=== PATIENT | female | born 1960 | race Hispanic/Latino ===

== ENCOUNTER 2018-06-15 15:02 | Inpatient (IN) | payer MEDICARE, OTHER ==
[2018-06-15 23:37] VITALS: BMI 37.5
[2018-06-15] MEDS ORDERED: Bismuth Subsalicylate 262 mg/15 ml Sus (240 ml) PO PRN (23:46)
[2018-06-15] MEDS ORDERED: Magnesium Hydroxide Susp 30 ml UD PO PRN (23:46)
[2018-06-15] MEDS ORDERED: Alum-Mag Hydrox-Simethicone Susp (30 mL) PO PRN (23:46)
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
[2018-06-16 06:56] LABS: BASO # 0.1 K/uL (0.0-0.2); BASO % 0.8 % (0.0-2.0); EOS # 0.1 K/uL (0.0-0.7); EOS % 1.9 % (0.0-4.0); HEMOGLOBIN 12.5 g/dL (12.0-16.0); LYMPH # 1.8 K/uL (1.0-4.3); LYMPH % 26.7 % (20.0-40.0); MEAN CELL VOLUME 88.5 fl (81.0-99.0); MEAN CORPUSCULAR HEMOGLOBIN 29.6 pg (27.0-31.0); MEAN CORPUSCULAR HGB CONC 33.4 g/dL (33.0-37.0); MEAN PLATELET VOLUME 7.1 fl (7.2-11.7); MONO # 0.5 K/uL (0.0-0.8); MONO % 7.1 % (0.0-10.0); NEUT # 4.3 K/uL (1.8-7.0); NEUT % 63.5 % (50.0-75.0); NRBC % 0.1 % (0.0-0.0); RBC 4.22 Mil/uL (3.80-5.20); WHITE BLOOD COUNT 6.8 K/uL (4.8-10.8)
[2018-06-16 07:07] LABS: ALB/GLOB RATIO 1.4 (1.0-2.1); ALBUMIN 4.1 g/dL (3.5-5.0); CALCIUM 9.2 mg/dL (8.4-10.2)
[2018-06-16 07:25] LABS: T4 10.7 ug/dl (5.5-11.0)
[2018-06-16 07:26] LABS: IRON 63 ug/dL (37-170)
[2018-06-16 07:43] LABS: % IRON SATURATION 17 % (20-55); TOTAL IRON BINDING CAPACITY 361 ug/dL (250-450)
[2018-06-16] MEDS: OLANZapine 5 mg Disintegrating Tab PO SCH (09:44)
[2018-06-16] MEDS: Cholestyramine 4 gm/Pkt UD PO SCH (09:48)
--- NOTE | 2018-06-16 11:21 | PCM.PSYCH ---
Initial Psychiatric Evaluation - Initial Psychiatric Evaluation Type of Admission: Voluntary Legal Status: Capacity Chief Complaint (in patient's own words): "I'm hearing voices telling me to kill myself." Patient's Reaction to Hospitalization: HPI: 58 yo female w/ h/o schizophrenia vs schizoaffective disorder, transferred from [facility], presents w/ worsening depression, CAH telling her to overdose on pills, active suicidal ideation w/o current intent, paranoia and persecutory delusions. Patient was recently restarted on Zyprexa and Remeron. PPHx: Multiple past psychiatric admissions, current outpatient tx w/ Dr. 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 Current Medications: Active Medications Generic Name Dose Route Start Last Admin Trade Name Freq PRN Reason Stop Dose Admin Acetaminophen 650 mg 06/15/18 23:46 06/16/18 00:05 Tylenol 325mg Tab PO 650 mg Q4 PRN Administration Pain, moderate (4-7) Al Hydrox/Mg Hydrox/Simethicone 30 ml 06/15/18 23:46 Maalox Plus 30 Ml PO Q4 PRN Dyspepsia Allopurinol 100 mg 06/16/18 09:00 Zyloprim PO DAILY ZACH Aspirin 81 mg 06/16/18 09:00 06/16/18 09:51 Ecotrin PO 81 mg DAILY ZACH Administration Bismuth Subsalicylate 524 mg 06/15/18 23:46 Pepto-Bismol PO Q4 PRN Diarrhea Cholestyramine Resin 4 gm 06/16/18 09:00 06/16/18 09:48 Questran PO Not Given DAILY ZACH Ibuprofen 600 mg 06/16/18 10:04 Motrin Tab PO Q8 PRN Pain, moderate (4-7) Lamotrigine 100 mg 06/16/18 09:00 06/16/18 09:51 Lamictal PO 100 mg BID ZACH Administration Levetiracetam 1,000 mg 06/16/18 09:00 06/16/18 09:42 Keppra PO 1,000 mg BID ZACH Administration Lorazepam 0.5 mg 06/15/18 23:46 06/16/18 00:06 Ativan PO 06/29/18 23:47 0.5 mg HS PRN Administration Insomnia Lorazepam 0.5 mg 06/15/18 23:46 Ativan PO 06/29/18 23:47 Q6 PRN Anixety/Agitation Magnesium Hydroxide 30 ml 06/15/18 23:46 Milk Of Magnesia PO HS PRN Constipation Mirtazapine 15 mg 06/16/18 22:00 Remeron PO HS ZACH Olanzapine 5 mg 06/16/18 09:00 06/16/18 09:44 Zyprexa Zydis PO 5 mg DAILY ZACH Administration Olanzapine 10 mg 06/16/18 22:00 Zyprexa PO HS ZACH Past Psychiatric History - Past Psychiatric History Previous Treatment History: Inpatient Pertinent Medical Hx (Current Medical&Sleep Prob, Allergies): Allergies Allergy/AdvReac Type Severity Reaction Status Date / Time Penicillins Allergy Severe ITCHING Verified 05/27/18 14:03 Aspirin [Ecotrin] 81 mg PO DAILY #30 tabec 05/05/18 FLUoxetine [Prozac] 20 mg PO DAILY #30 cap 05/05/18 LORazepam [Ativan] 1 mg PO HS tab 05/05/18 LORazepam [Ativan] 2 mg PO Q6H PRN tab 05/05/18 levETIRAcetam [Keppra] 1,000 mg PO HS #30 tab 05/05/18 levETIRAcetam [Keppra] 750 mg PO DAILY #30 tab 05/05/18 Allopurinol [Zyloprim] 100 mg PO DAILY 05/19/18 Mirtazapine [Remeron] 15 mg PO HS 05/19/18 Omeprazole 40 mg PO DAILY 05/19/18 lamoTRIgine [LaMICtal] 100 mg PO BID 05/19/18 Allopurinol [Zyloprim] 300 mg PO DAILY #30 tab 06/08/18 Aspirin [Aspirin Chewable] 81 mg PO DAILY #30 chew 06/08/18 Loratadine [Claritin] 10 mg PO DAILY #30 tab 06/08/18 Mirtazapine [Remeron] 45 mg PO HS #30 tab 06/08/18 cloZAPine [Clozaril] 200 mg PO BID #60 tab 06/08/18 lamoTRIgine [Lamictal] 100 mg PO BID #60 tab 06/08/18 levETIRAcetam [Keppra] 1,000 mg PO BID #30 tab 06/08/18 Cholestyramine [Questran] 4 mg PO DAILY 06/16/18 Meclizine HCl 12.5 mg PO TID 06/16/18 Nitrofurantoin Macrocrystals [Macrobid] 100 mg PO Q12 06/16/18 OLANZapine [Zyprexa Zydis] 06/16/18 OLANZapine [Zyprexa Zydis] 2.5 mg PO 1700 06/16/18 OLANZapine [Zyprexa Zydis] 5 mg PO DAILY 06/16/18 OLANZapine [Zyprexa Zydis] 5 mg PO HS 06/16/18 Review of Systems - Psychiatric Psychiatric: As Per HPI, Abnormal Sleep Pattern, Anhedonia, Anxiety, Auditory Hallucinations, Behavioral Changes, Change in Appetite, Depression, Difficulty Concentrating, Hallucinations, Hopelessness, Irritability, Mood Swings, Paranoia, Suicidal Ideation Mental Status Examination - Personal Presentation Personal Presentation: Looks older than stated age, Obese - Affect Affect: Constricted - Motor Activity Motor Activity: Calm - Reliability in Providing Information Reliability in Providing Information: Fair - Speech Speech: Coherent - Mood Mood: Depressed - Formal Thought Process Formal Thought Process: Hallucinations, Delusions, Paranoia - Hallucinations/Delusions Hallucinations: Auditory - Obsessions/Compulsions Obsessions: No Compulsions: No - Cognitive Functions Orientation: Person, Place, Situation, Time Sensorium: Alert Judgement: Intact, as evidence by: Insight regarding need for hospitalization Memory: Recent intact, as evidence by: Ability to recall events of the day - Risk Risk: Suicidal, Diminished functioning - Strength & Assets Inventory Strength & Assets Inventory: Cooperative - Limitations Limitations: Living alone DSM 5 DX - DSM 5 DSM 5 Diagnosis: Schizoaffective Disorder - Recommended/Plan of Treatment Treatment Recommendations and Plan of Treatment: Schizoaffective Disorder -Admit to psychiatry unit -Individual and group therapy -Psychoeducation -Increase Zyprexa -Continue Remeron -PT eval -Medicine consult -Disposition planning Projected ELOS: 7-10 days Discharge Plan and Discharge Criteria: Discharge when patient is psychiatrically stable
[2018-06-16 12:57] LABS: FOLATE 6.6 ng/mL
[2018-06-16 13:35] LABS: SQUAMOUS EPITHIAL 5 /hpf (0-5); URINE BACTERIA FEW (<OCC); URINE BILIRUBIN NEGATIVE (NEGATIVE); URINE BLOOD NEGATIVE (NEGATIVE); URINE CLARITY SLIGHTY-CLOUDY (Clear); URINE COLOR YELLOW (YELLOW); URINE GLUCOSE (UA) NEG (Normal); URINE LEUKOCYTE ESTERASE NEG Leu/uL (Negative); URINE PROTEIN NEGATIVE (NEGATIVE)
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
[2018-06-17] MEDS: Pantoprazole 40 mg EC Tab PO SCH (09:04)
[2018-06-17] MEDS: Cholestyramine 4 gm/Pkt UD PO SCH (09:06)
--- NOTE | 2018-06-17 10:34 | PCM.PYCHPN ---
Psychiatric Progress Note - Psychiatric Progress Note Patient seen today, length of contact: Pt evaluated, case discussed w/ team, chart reviewed Patient Chief Complaint: "I'm hearing voices telling me to kill myself." Problems Identified/Issues Discussed: Patient continues to report CAH telling her to kill herself, but states that she does not want to act on these hallucinations. She is paranoid, expressing concerns that men may harm her. She reports feeling less anxious, but states that she continues to feel depressed. Medication Change: No Medical Record Reviewed: Yes Consults ordered or reviewed: Medicine consult Mental Status Examination - Cognitive Function Orientation: Person, Place, Situation, Time Memory: Intact Decription of patient's judgement and insights: Poor I/J - Mood Mood: Depressed - Affect Affect: Constricted - Formal Thought Process Formal Thought Process: Hallucinations, Delusions, Paranoia Psychotic Thoughts and Behaviors: +CAH, +Paranoia - Suicidal Ideation Suicidal Ideation: Yes Plan: +CAH to kill herself; does not have current plan or intent - Homicidal Ideation Homicidal Ideation: No Goal/Treatment Plan - Goal/Treatment Plan Need for Continued Stay: Remain at risks for inpatient hospitalization, Severe depression anxiety, Discharge may exacerbated symptoms Progress Toward Problem(s) and Goals/Treatment Plan: Schizoaffective Disorder -Individual and group therapy -Psychoeducation -Continue -Continue Remeron -PT eval -Medicine consult -Disposition planning
[2018-06-17] MEDS: OLANZapine 5 mg Disintegrating Tab PO SCH (11:32)
[2018-06-18] MEDS: Cholestyramine 4 gm/Pkt UD PO SCH ×2 (08:39→08:45)
[2018-06-18] MEDS: Pantoprazole 40 mg EC Tab PO SCH (08:40)
[2018-06-18] MEDS: OLANZapine 5 mg Disintegrating Tab PO SCH (08:40)
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
[2018-06-19] MEDS: Pantoprazole 40 mg EC Tab PO SCH (08:13)
[2018-06-19] MEDS: OLANZapine 5 mg Disintegrating Tab PO SCH (08:14)
[2018-06-19] MEDS: Cholestyramine 4 gm/Pkt UD PO SCH (08:14)
--- NOTE | 2018-06-19 14:03 | PCM.PYCHPN ---
Psychiatric Progress Note - Psychiatric Progress Note Patient seen today, length of contact: Pt evaluated, case discussed w/ team, chart reviewed Patient Chief Complaint: reports that did not have nightmares last night (was started on prozin), reports slept better, staff report pt seen about unit, rx adherent Medication Change: No Medical Record Reviewed: Yes Consults ordered or reviewed: pt seen by hospitalist Mental Status Examination - Cognitive Function Orientation: Person, Place, Situation, Time Memory: Intact Association: WNL Fund of Knowledge: WN Decription of patient's judgement and insights: impaired - Mood Mood: Depressed - Affect Affect: Constricted - Formal Thought Process Formal Thought Process: Hallucinations, Delusions, Paranoia - Suicidal Ideation Suicidal Ideation: Yes Plan: contracts for safety does not have plan - Homicidal Ideation Homicidal Ideation: Yes Goal/Treatment Plan - Goal/Treatment Plan Need for Continued Stay: Remain at risks for inpatient hospitalization, Severe depression anxiety, Discharge may exacerbated symptoms Progress Toward Problem(s) and Goals/Treatment Plan: inpt milieu adjust meds per clinical status unit based observation per protocol and per clinical status discharge planning in progress Estimated Date of D/C: 06/26/18 - Smoking Cessation Smoking Cessation Initiated: No Reason for not providing: defer
[2018-06-20] MEDS: Pantoprazole 40 mg EC Tab PO SCH (08:40)
[2018-06-20] MEDS: OLANZapine 5 mg Disintegrating Tab PO SCH (08:40)
[2018-06-20] MEDS: Cholestyramine 4 gm/Pkt UD PO SCH (08:41)
--- NOTE | 2018-06-20 10:13 | PCM.PYCHPN ---
Psychiatric Progress Note - Psychiatric Progress Note Patient seen today, length of contact: Pt evaluated, case discussed w/ team, chart reviewed Patient Chief Complaint: I slept better Problems Identified/Issues Discussed: pt evaluated, presenting with anxious mood and affect, reported improved sleep and partial clearing of the auditory hallucinations with the increase in zyprexa, no reported side effects, denied any current suicidal or homicidal ideation, denied any current command hallucinations, compliant with treatment . DSM 5 Symptoms Update: schizophrenia Medication Change: No Medical Record Reviewed: Yes Mental Status Examination - Cognitive Function Orientation: Person, Place, Situation, Time Memory: Intact Association: WNL Fund of Knowledge: WNL - Mood Mood: Depressed, Anxious - Affect Affect: Constricted - Speech Speech: Appropriate - Formal Thought Process Formal Thought Process: Hallucinations, Delusions, Paranoia - Suicidal Ideation Suicidal Ideation: No - Homicidal Ideation Homicidal Ideation: No Goal/Treatment Plan - Goal/Treatment Plan Need for Continued Stay: Remain at risks for inpatient hospitalization, Severe depression anxiety, Discharge may exacerbated symptoms Progress Toward Problem(s) and Goals/Treatment Plan: continue zyprexa 15mg continue with prazosin CBT group and supportive therapy Estimated Date of D/C: 06/26/18
[2018-06-21] MEDS: Cholestyramine 4 gm/Pkt UD PO SCH (08:30)
[2018-06-21] MEDS: Pantoprazole 40 mg EC Tab PO SCH (08:30)
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
[2018-06-22] MEDS: Pantoprazole 40 mg EC Tab PO SCH (08:23)
[2018-06-22] MEDS: Cholestyramine 4 gm/Pkt UD PO SCH (08:24)
--- NOTE | 2018-06-22 08:32 | PCM.PYCHPN ---
Psychiatric Progress Note - Psychiatric Progress Note Patient seen today, length of contact: Pt evaluated, case discussed w/ team, chart reviewed Patient Chief Complaint: "I'm hearing less voices." Problems Identified/Issues Discussed: Patient reports that she feels less paranoid. She also reports less AH and denies any ideation to harm herself or others. No adverse effects to medications reported. She reports less nightmares. Medication Change: No Medical Record Reviewed: Yes Consults ordered or reviewed: Medicine consult Mental Status Examination - Cognitive Function Orientation: Person, Place, Situation, Time Memory: Intact Association: WNL Fund of Knowledge: [facility] Decription of patient's judgement and insights: Poor I/J - Mood Mood: Anxious - Affect Affect: Constricted - Speech Speech: Appropriate - Formal Thought Process Formal Thought Process: Hallucinations Psychotic Thoughts and Behaviors: Less AH, less paranoid - Suicidal Ideation Suicidal Ideation: No - Homicidal Ideation Homicidal Ideation: No Goal/Treatment Plan - Goal/Treatment Plan Need for Continued Stay: Remain at risks for inpatient hospitalization, Severe depression anxiety, Discharge may exacerbated symptoms Progress Toward Problem(s) and Goals/Treatment Plan: Schizoaffective Disorder -Individual and group therapy -Psychoeducation -Continue Zyprexa to 20 mg PO HS -Continue Remeron 45 mg PO HS -Continue Prazosin 1 mg PO HS -PT eval -Medicine consult -Disposition planning Estimated Date of D/C: 06/24/18
--- NOTE | 2018-06-23 08:02 | PCM.PYCHPN ---
Psychiatric Progress Note - Psychiatric Progress Note Patient seen today, length of contact: Pt evaluated, case discussed w/ team, chart reviewed Patient Chief Complaint: "I'm getting better." Problems Identified/Issues Discussed: Patient reports that her mood is improving. She denies acute paranoia or hallucinations. NO AH/VH/SI/HI. No adverse effects to medications reported. She reports less nightmares. Medication Change: No Medical Record Reviewed: Yes Consults ordered or reviewed: Medicine consult Mental Status Examination - Cognitive Function Orientation: Person, Place, Situation, Time Memory: Intact Association: WNL Fund of Knowledge: [facility] Decription of patient's judgement and insights: Poor I/J - Mood Mood: Anxious - Affect Affect: Broad - Speech Speech: Appropriate - Formal Thought Process Formal Thought Process: No Impairment Psychotic Thoughts and Behaviors: Denies AH/paranoia - Suicidal Ideation Suicidal Ideation: No - Homicidal Ideation Homicidal Ideation: No Goal/Treatment Plan - Goal/Treatment Plan Need for Continued Stay: Severe depression anxiety, Discharge may exacerbated symptoms Progress Toward Problem(s) and Goals/Treatment Plan: Schizoaffective Disorder -Individual and group therapy -Psychoeducation -Continue Zyprexa 20 mg PO HS -Continue Remeron 45 mg PO HS -Continue Prazosin 1 mg PO HS -PT eval -Medicine consult -Disposition planning- patient is improving clinically, will likely discharge to home tomorrow Estimated Date of D/C: 06/24/18
[2018-06-23] MEDS: Pantoprazole 40 mg EC Tab PO SCH (08:52)
[2018-06-23] MEDS: Cholestyramine 4 gm/Pkt UD PO SCH (08:54)
[2018-06-24 05:47] VITALS: BP 111/65; PULSE 72; RESP 18; TEMP 97.3
--- NOTE | 2018-06-24 08:35 | PCM.PYCHDC ---
Mental Status Examination - Mental Status Examination Orientation: Person, Place, Situation, Time Memory: Intact Mood: Neutral Affect: Broad Speech: Appropriate Attention: WNL Concentration: WNL Association: WNL Fund of Knowledge: WNL Formal Thought Process: No Impairment Description of patient's judgement and insight: Fair I/J Psychotic Thoughts and Behaviors: No AH/VH/paranoia/delusions Suicidal Ideation: No Current Homicidal Ideation?: No Discharge Summary - Discharge Note Reason for Hospitalization: HPI: 58 yo female w/ h/o schizophrenia vs schizoaffective disorder, transferred from [facility], presents w/ worsening depression, [facility] telling her to overdose on pills, active suicidal ideation w/o current intent, paranoia and persecutory delusions. Patient was recently restarted on Zyprexa and Remeron. PPHx: Multiple past psychiatric admissions, current outpatient tx w/ Dr. Rico PMHx: Gout, Seizure disorder, UTI ALL: PCN SHx: Lives alone in apt; has DENTAL OFFICE COORDINATOR; denies drugs/etoh Consultations:: List each consultation separately and include: 1. Reason for request. 2. Findings. 3. Follow-up Consultations: Medicine consult Summary of Hospital Course include:: 1. Description of specific treatment plan utilized for patients during their course of treatmen. 2. Summarize the time- course for resolution of acute symptoms and/or regressed behaviors. 3. Describe issues identified and worked on during hospitalization. 4. Describe medication utilized. 5. Describe medical problems identified and treated. 6. Reassessment of suicide risk Summary of Hospital Course: Patient was admitted to the psychiatry unit. Individual and group therapy were provided. Patient was stabilized on Prazosin, Trazodone and Zyprexa. She denies acute depression/anxiety/AH/VH/paranoia/delusions/SI/HI. She is psych iatrically stable for discharge at this time. - Diagnosis (1) Schizoaffective disorder Current Visit: No Status: Chronic - Final Diagnosis (DSM 5) Condition upon Discharge: STABLE DSM 5: Schizoaffective Disorder Disposition: HOME/ ROUTINE Follow-up Treatment Plan: Schizoaffective Disorder -Individual and group therapy -Psychoeducation -Continue Zyprexa 20 mg PO HS -Continue Remeron 45 mg PO HS -Continue Prazosin 1 mg PO HS -Discharge w/ outpatient follow-up Prescriptions/Medication Reconciliation: Olanzapine [Zyprexa] 20 mg PO HS #30 tablet Prazosin HCl [Minipress] 1 mg PO HS #30 cap - Smoking Cessation Smoking Cessation Medication prescribed: No Reason for not providing: Not indicated - Antipsychotic Medications Pt discharged on 2 or more routine antipsychotic medications: No
[2018-06-24] MEDS: Pantoprazole 40 mg EC Tab PO SCH (09:01)
[2018-06-24] MEDS: Cholestyramine 4 gm/Pkt UD PO SCH (09:02)
== END 2018-06-24 12:11 | disposition home or self-care (01) | DRG 885 ==
LOC: H.STEP 23:37
PROVIDERS: ADMIT Psychiatry & Neurology Psychiatry; ATTEND Psychiatry & Neurology Psychiatry
PROC: GZHZZZZ Group Psychotherapy (ICD-10-PCS; principal; 2018-06-15)
PROC: GZ58ZZZ Individual Psychotherapy, Cognitive-Behavioral (ICD-10-PCS; 2018-06-15)
PROC: GZ56ZZZ Individual Psychotherapy, Supportive (ICD-10-PCS; 2018-06-15)
DX: F25.9 Schizoaffective disorder, unspecified (principal); R45.851 Suicidal ideations; G40.909 Epilepsy, unspecified, not intractable, without status epilepticus; M10.9 Gout, unspecified; Z88.0 Allergy status to penicillin; E66.9 Obesity, unspecified; Z68.37 Body mass index [BMI] 37.0-37.9, adult; K21.9 Gastro-esophageal reflux disease without esophagitis; R45.850 Homicidal ideations